=== PATIENT | male | born 1970 | race Caucasian/White ===

== ENCOUNTER 2017-05-07 21:26 | Inpatient (IN) | payer OTHER ==
[~2017-05-07] VITALS: Ht 185.4 cm; Wt 134.8 kg
[2017-05-07 22:21] LABS: HEMOGLOBIN 15.4 gm/dl (14.0-17.5); RED BLOOD COUNT 5.3 M/UL (4.20-5.50); WHITE BLOOD COUNT 10.4 K/UL (4.5-11.0)
[2017-05-07 22:44] LABS: BUN/CREATININE RATIO 14 (0-10)
[2017-05-08 07:55] LABS: HEMOGLOBIN 14.9 gm/dl (14.0-17.5); RED BLOOD COUNT 5.14 M/UL (4.20-5.50)
[2017-05-08 07:59] LABS: BUN/CREATININE RATIO 18 (0-10); WHITE BLOOD COUNT 18.6 K/UL (4.5-11.0)
[2017-05-09 03:04] LABS: HEMOGLOBIN 13.5 gm/dl (14.0-17.5); RED BLOOD COUNT 4.66 M/UL (4.20-5.50)
[2017-05-09 03:12] LABS: WHITE BLOOD COUNT 13.8 K/UL (4.5-11.0)
[2017-05-09 03:21] LABS: BUN/CREATININE RATIO 18 (0-10)
--- NOTE | 2017-05-09 06:21 | NUR ---
UPDATED REPORT GIVEN TO ONCOMING SHIFT
[2017-05-10 03:22] LABS: HEMOGLOBIN 13.1 gm/dl (14.0-17.5); RED BLOOD COUNT 4.46 M/UL (4.20-5.50)
[2017-05-10 03:25] LABS: WHITE BLOOD COUNT 9.9 K/UL (4.5-11.0)
[2017-05-10 03:44] LABS: BUN/CREATININE RATIO 19 (0-10)
[2017-05-11 03:52] LABS: BUN/CREATININE RATIO 20 (0-10)
[2017-05-11] MEDS ORDERED: AUGMENTIN TAB875 MG PO (10:37)
[2017-05-11] MEDS ORDERED: ADULT LOW DOSE81 MG PO (10:38)
[2017-05-11] MEDS ORDERED: LIPITOR TAB 2020 MG PO (10:38)
[2017-05-11] MEDS ORDERED: LISINOPRIL5 MG PO (10:39)
[2017-05-11] MEDS ORDERED: ALDACTONE 25MG25 MG PO (10:41)
[2017-05-11] MEDS ORDERED: LOPRESSOR 25 MG25 MG PO (10:41)
[2017-05-11] MEDS ORDERED: BRILINTA 90 MG90 MG PO (10:42)
[2017-05-11] MEDS ORDERED: TYLENOL EL325 MG/10 PO (10:44)
== END 2017-05-11 12:20 | disposition home or self-care (01) | DRG 246 ==
LOC: ER1 21:26 → ZEROF 22:44 → CCU 22:44
PROVIDERS: Internal Medicine; Internal Medicine Infectious Disease; Preventive Medicine Occupational Medicine; ADMIT Internal Medicine
PROC: 4A023N7 Measurement of Cardiac Sampling and Pressure, Left Heart, Percutaneous Approach (ICD-10-PCS; 2017-05-07)
PROC: B2111ZZ Fluoroscopy of Multiple Coronary Arteries using Low Osmolar Contrast (ICD-10-PCS; 2017-05-07)
PROC: 5A1935Z Respiratory Ventilation, Less than 24 Consecutive Hours (ICD-10-PCS; 2017-05-07)
PROC: 0BH17EZ Insertion of Endotracheal Airway into Trachea, Via Natural or Artificial Opening (ICD-10-PCS; 2017-05-07)
PROC: 5A2204Z Restoration of Cardiac Rhythm, Single (ICD-10-PCS; 2017-05-07)
PROC: 027035Z Dilation of Coronary Artery, One Artery with Two Drug-eluting Intraluminal Devices, Percutaneous Approach (ICD-10-PCS; principal; 2017-05-08)
DX: I21.09 ST elevation (STEMI) myocardial infarction involving other coronary artery of anterior wall (principal); J96.01 Acute respiratory failure with hypoxia; R57.0 Cardiogenic shock; I50.21 Acute systolic (congestive) heart failure; I49.01 Ventricular fibrillation; I47.2 Ventricular tachycardia; E87.1 Hypo-osmolality and hyponatremia; I25.5 Ischemic cardiomyopathy; I25.10 Atherosclerotic heart disease of native coronary artery without angina pectoris; I11.0 Hypertensive heart disease with heart failure; E78.5 Hyperlipidemia, unspecified; E66.9 Obesity, unspecified; J04.10 Acute tracheitis without obstruction; B96.20 Unspecified Escherichia coli [E. coli] as the cause of diseases classified elsewhere; B96.3 Hemophilus influenzae [H. influenzae] as the cause of diseases classified elsewhere; K21.9 Gastro-esophageal reflux disease without esophagitis; F17.210 Nicotine dependence, cigarettes, uncomplicated; Z68.38 Body mass index [BMI] 38.0-38.9, adult; Z82.49 Family history of ischemic heart disease and other diseases of the circulatory system; Z90.49 Acquired absence of other specified parts of digestive tract; Z98.890 Other specified postprocedural states
CPT/HCPCS: ECHO; 31500; 36415; 36600; 70450; 71010; 71020; 80048; 80053; 80061; 81001; 82150; 82550; 82553; 82803; 82962; 83036; 83690; 83735; 83874; 83880; 83930; 83935; 84300; 84443; 84484; 85025; 85027; 85347; 85610; 85730; 87040; 87070; 87077; 87086; 87186; 87205; 92950; 93005; 93306; 94002; 94003; 94761; 99291; A4628; C1725; C1769; C1874; C1887; C1894; C9113; C9600; J0171; J0282; J0330; J0456; J0461; J0583; J0696; J1644; J1650; J1940; J2250; J3475; J7030; J7040; Q9965

== ENCOUNTER → 2017-05-18 | Outpatient (CLI) | payer OTHER ==
[~2017-05-18] MED LIST: ADULT LOW DOSE81 MG PO; ALDACTONE 25MG25 MG PO; AUGMENTIN TAB875 MG PO; BRILINTA 90 MG90 MG PO; LIPITOR TAB 2020 MG PO; LISINOPRIL5 MG PO; LOPRESSOR 25 MG25 MG PO; TYLENOL EL325 MG/10 PO
[2017-05-18 11:55] LABS: BUN/CREATININE RATIO 13 (0-10)
== END ==
LOC: LAB 11:12
PROVIDERS: Internal Medicine Infectious Disease
DX: I25.5 Ischemic cardiomyopathy (principal)
CPT/HCPCS: 36415; 80053